=== PATIENT | female | born 1985 | race Two or more races ===

== ENCOUNTER 2024-08-12 13:49 | Emergency (ER) | payer BC ==
[~2024-08-12] VITALS: Ht 167.6 cm; Wt 60.3 kg
[2024-08-12 14:02] VITALS: BP 133/79; TEMP 98.4
[2024-08-12] MEDS ORDERED: IBUPROFEN 400 MG TABLET ONE (14:22)
[2024-08-12] MEDS: IBUPROFEN 400 MG TABLET PO ONE (14:24)
[2024-08-12] MEDS ORDERED: IBUP-1957 PO (15:05)
[2024-08-12 15:31] VITALS: O2SAT 98
== END 2024-08-12 15:33 | disposition home or self-care (01) ==
LOC: ER 14:00
DX: S63.281A Dislocation of proximal interphalangeal joint of left index finger, initial encounter (principal); W19.XXXA Unspecified fall, initial encounter; Y93.89 Activity, other specified; Y92.89 Other specified places as the place of occurrence of the external cause; Y99.8 Other external cause status
CPT/HCPCS: 73140-TC